=== PATIENT | female | born 1965 | race Caucasian/White ===

== ENCOUNTER 2017-09-07 12:57 | Emergency (ER) | payer OTHER ==
[~2017-09-07] VITALS: Ht 170.2 cm; Wt 73.9 kg
[2017-09-07] MEDS ORDERED: PROMETH-CODEIN 65 ML PO (13:23)
[2017-09-07] MEDS ORDERED: MEDROL8 MG PO (13:23)
[2017-09-07] MEDS ORDERED: SINGULAIR10 MG PO (13:24)
[2017-09-07] MEDS ORDERED: THEOPHYLLINE400 MG PO (13:24)
[2017-09-07] MEDS ORDERED: ZITHROMAX200 MG PO (13:24)
[2017-09-07] MEDS ORDERED: XOPENEX0.63 MG/3 IH (13:25)
== END 2017-09-07 18:27 | disposition home or self-care (01) ==
LOC: ER 12:57
DX: J45.998 Other asthma (principal)

== ENCOUNTER 2020-08-06 18:54 | Emergency (ER) | payer OTHER ==
[~2020-08-06] VITALS: Ht 170.2 cm; Wt 83.5 kg
[~2020-08-06 18:54] MED LIST: MEDROL8 MG PO; PROMETH-CODEIN 65 ML PO; SINGULAIR10 MG PO; THEOPHYLLINE400 MG PO; XOPENEX0.63 MG/3 IH; ZITHROMAX200 MG PO
[2020-08-06] MEDS ORDERED: RAYOS5 MG (19:20)
[2020-08-06] MEDS ORDERED: ZESTRIL20 MG (19:20)
== END 2020-08-06 22:54 | disposition home or self-care (01) ==
LOC: ER 18:54
DX: R10.11 Right upper quadrant pain (principal)

== ENCOUNTER 2024-08-06 07:54 | Outpatient (CLI) | payer OTHER ==
[~2024-08-06 07:54] MED LIST changes: +RAYOS5 MG; +ZESTRIL20 MG
== END 2024-08-06 08:01 | disposition home or self-care (01) ==
LOC: SONOGRAMA 07:54
PROVIDERS: ATTEND Pathology Anatomic Pathology
DX: D34 Benign neoplasm of thyroid gland (principal); E07.89 Other specified disorders of thyroid; E04.2 Nontoxic multinodular goiter